=== PATIENT | male | born 1995 | race Caucasian/White ===

== ENCOUNTER 2017-08-09 13:34 | Emergency (ER) | payer OTHER ==
[~2017-08-09] VITALS: Ht 162.6 cm; Wt 77.1 kg
[~2017-08-09 13:34] MED LIST: BENADRYL25 MG PO; KEFLEX500 MG PO; KENALOG60 GM TP; NOHOMEMEDICATIONS; PEPCID40 MG PO; PREDNISONE 20 M20 MG PO
[2017-08-09] MEDS ORDERED: RISPERDAL 1 MG T1 MG PO (13:51)
[2017-08-09] MEDS ORDERED: PROZAC10 M1 PO (13:51)
[2017-08-09] MEDS ORDERED: TRAZODONE 150150 M1 PO (13:52)
[2017-08-09] MEDS ORDERED: IBUPROFEN 600600 M1 PO (14:35)
[2017-08-09] MEDS ORDERED: AMOXICILLIN 50500 M1 PO (14:35)
[2017-08-09 14:46] VITALS: BP 130/83
== END 2017-08-09 14:47 | disposition home or self-care (01) ==
LOC: M.ERS 13:34
DX: K04.7 Periapical abscess without sinus (principal); F17.200 Nicotine dependence, unspecified, uncomplicated; F12.10 Cannabis abuse, uncomplicated; Z90.89 Acquired absence of other organs

== ENCOUNTER 2017-11-22 09:12 | Emergency (ER) | payer OTHER ==
[~2017-11-22] VITALS: Ht 162.6 cm; Wt 81.7 kg
[~2017-11-22 09:12] MED LIST changes: +AMOXICILLIN 50500 M1 PO; +IBUPROFEN 600600 M1 PO; +PROZAC10 M1 PO; +RISPERDAL 1 MG T1 MG PO; +TRAZODONE 150150 M1 PO
[2017-11-22 10:24] VITALS: BP 155/87
== END 2017-11-22 10:25 | disposition home or self-care (01) ==
LOC: M.ERS 09:12
DX: Z71.1 Person with feared health complaint in whom no diagnosis is made (principal)

== ENCOUNTER 2018-02-26 12:24 | Emergency (ER) | payer OTHER ==
[~2018-02-26] VITALS: Ht 160 cm; Wt 68.0 kg
[2018-02-26] MEDS ORDERED: PREDNISONE 10 M10 MG PO (14:05)
[2018-02-26] MEDS ORDERED: VENTOLIN HFA 1818 GM INH (14:05)
[2018-02-26 14:20] VITALS: BP 138/90
== END 2018-02-26 14:20 | disposition home or self-care (01) ==
LOC: M.ERS 12:24
DX: J40 Bronchitis, not specified as acute or chronic (principal); F17.210 Nicotine dependence, cigarettes, uncomplicated

== ENCOUNTER 2018-07-16 07:35 | Emergency (ER) | payer OTHER ==
[~2018-07-16] VITALS: Ht 160 cm; Wt 81.7 kg
[~2018-07-16 07:35] MED LIST changes: +PREDNISONE 10 M10 MG PO; +VENTOLIN HFA 1818 GM INH
[2018-07-16 08:18] LABS: ABSOLUTE BASOPHILS 0.1 thou/uL (0.0-0.2); ABSOLUTE EOSINOPHILS 0.6 thou/uL (0.0-0.7); ABSOLUTE LYMPHOCYTES 2.1 thou/uL (0.8-5.3); ABSOLUTE MONOCYTES 0.8 thou/uL (0.0-1.2); ABSOLUTE NEUTROPHILS 7.4 thou/uL (1.6-8.1); BASOPHILS 1.3 %; EOSINOPHILS 5.3 %; HEMATOCRIT 45.5 % (42.0-52.0); HEMOGLOBIN 15.6 gm/dL (14.0-18.0); LYMPHOCYTES 18.9 %; MCH 30.2 pg (26.0-34.0); MCHC 34.4 g/dL (28.0-37.0); MCV 87.8 fL (80.0-100.0); MONOCYTES 6.9 %; MPV 8.7 fl. (7.2-11.1); NUCLEATED RBCS 0 /100WBC; PLATELET COUNT* 274 thou/uL (150-400); POLYS 67.6 %; RBC 5.18 mil/uL (4.50-6.00); RDW-CV 12.2 % (10.5-14.5)
[2018-07-16 08:32] LABS: ANION GAP 9 mmol/L (7-16); BUN 20 mg/dL (7-18); CALCIUM 8.7 mg/dL (8.5-10.1); CHLORIDE 104 mmol/L (98-107); CO2 26 mmol/L (21-32); GLUCOSE 130 mg/dL (70-99); POTASSIUM 4.4 mmol/L (3.5-5.1); SODIUM 139 mmol/L (136-145); TROPONIN-I LEVEL <0.06 ng/mL (<0.06)
[2018-07-16 08:34] LABS: ALBUMIN 3.8 g/dL (3.4-5.0); ALKALINE PHOSPHATASE 77 U/L (46-116); NT-PRO BRAIN NAT PEPTIDE 18 pg/mL (<300); SGOT 18 U/L (15-37); SGPT 35 U/L (30-65); TOTAL BILIRUBIN 0.1 mg/dL (<0.1-1.0); TOTAL PROTEIN 7.5 g/dL (6.4-8.2)
[2018-07-16 08:42] LABS: PCO2 39.9 mmHg (35.0-45.0); PO2 82.7 mmHg (75.0-100.0); pH 7.346 (7.340-7.450)
[2018-07-16 08:56] LABS: APTT 33.7 Seconds (25.0-31.3); PROTIME 10.2 Seconds (9.20-11.50)
[2018-07-16] MEDS ORDERED: AZITHROMYCIN 2250 MG PO (10:17)
[2018-07-16] MEDS ORDERED: PROAIR HFA8.5 GM INH (10:17)
[2018-07-16] MEDS ORDERED: AEROCHAMBER PL1 EACH INH (10:17)
[2018-07-16] MEDS ORDERED: MEDROLDOSEPACK PO (10:17)
[2018-07-16 11:06] VITALS: BP 134/75
--- NOTE | 2018-07-16 17:39 | EKG ---
[place] [address] ELECTROCARDIOGRAM REPORT Name: XENA ERICKSON [facility] [place] [id number] Admission: 07/16/18 Attend Phys: Discharge: 07/16/18 Date of : [birth year] Report #: [id number] THIS REPORT FOR: //name// [facility] ED Test Date: 2018-07-16 Test Time: 07:39:12 Pat Name: XENA ERICKSON Department: Room: Gender: M Access Representative: UNKNOWN : 1995 Requested By: Raj Cano Order Number: [id number] MD: Man Cardona Measurements Intervals [place] Rate: 116 P: 78 [place]: 170 QRS: 76 QRSD: 78 T: 36 QT: 301 QTc: 419 Interpretive Statements Sinus tachycardia No previous ECG available for comparison Electronically Signed On 07-16-2018 17:39:34 CDT by Man Cardona [email or web address] <ELECTRONICALLY SIGNED> By: Man Cardona MD, [facility] 07/16/18 1739 0739 0739 Man Cardona MD, FACC /EPI
== END 2018-07-16 11:07 | disposition home or self-care (01) ==
LOC: M.ERS 07:35
PROVIDERS: Emergency Medicine
DX: J40 Bronchitis, not specified as acute or chronic (principal); J18.9 Pneumonia, unspecified organism; J98.01 Acute bronchospasm

== ENCOUNTER 2018-12-23 16:23 | Emergency (ER) | payer OTHER ==
[~2018-12-23] VITALS: Ht 162.6 cm; Wt 87.5 kg
[~2018-12-23 16:23] MED LIST changes: +AEROCHAMBER PL1 EACH INH; +AZITHROMYCIN 2250 MG PO; +MEDROLDOSEPACK PO; +PROAIR HFA8.5 GM INH
[2018-12-23] MEDS ORDERED: INVEGA 3 MG3 MG PO (16:45)
[2018-12-23] MEDS ORDERED: DOXYCYCLINE 10100 MG PO (17:11)
[2018-12-23 17:30] LABS: URINE BILIRUBIN NEGATIVE (Negative); URINE BLOOD 2+ (Negative); URINE CLARITY CLEAR; URINE COLOR YELLOW; URINE GLUCOSE-RANDOM NEGATIVE (Negative); URINE KETONES NEGATIVE (Negative); URINE LEUKOCYTES-REFLEX NEGATIVE (Negative); URINE NITRITE-REFLEX NEGATIVE (Negative); URINE PROTEIN 2+ (Negative); URINE SPECIFIC GRAVITY >= 1.030 (1.005-1.030); URINE UROBILINOGEN 0.2 E.U./dl (0.2-1.0)
[2018-12-23 17:46] VITALS: BP 142/89
[2018-12-23 17:48] LABS: BACTERIA-REFLEX >30 Many /HPF (None Seen); CASTS None Seen /LPF (None Seen); CRYSTALS None Seen /LPF (None Seen); SQUAMOUS 0-3 Few /LPF (0-3); URINE RBC 0-2 Rare /HPF (0-2); URINE WBC-REFLEX None Seen /HPF (0-5)
== END 2018-12-23 17:47 | disposition home or self-care (01) ==
LOC: M.ERS 16:23
PROVIDERS: Emergency Medicine Emergency Medical Services
DX: N34.2 Other urethritis (principal); F20.9 Schizophrenia, unspecified; F17.210 Nicotine dependence, cigarettes, uncomplicated

== ENCOUNTER 2019-09-05 16:21 | Emergency (ER) | payer OTHER ==
[~2019-09-05] VITALS: Ht 160 cm; Wt 86.2 kg
[~2019-09-05 16:21] MED LIST changes: +DOXYCYCLINE 10100 MG PO; +INVEGA 3 MG3 MG PO
[2019-09-05] MEDS ORDERED: KEFLEX500 M2 PO (16:39)
[2019-09-05] MEDS ORDERED: DEPAKOTE250 MG PO (16:39)
[2019-09-05 17:10] VITALS: BP 128/61
== END 2019-09-05 17:10 | disposition home or self-care (01) ==
LOC: M.ERS 16:21
DX: S60.521A Blister (nonthermal) of right hand, initial encounter (principal); Z79.899 Other long term (current) drug therapy; X58.XXXA Exposure to other specified factors, initial encounter; Y93.89 Activity, other specified; Y92.89 Other specified places as the place of occurrence of the external cause; Y99.8 Other external cause status

== ENCOUNTER 2020-01-22 20:19 | Emergency (ER) | payer OTHER ==
[~2020-01-22] VITALS: Ht 160 cm; Wt 87.1 kg
[~2020-01-22 20:19] MED LIST changes: +DEPAKOTE250 MG PO; +KEFLEX500 M2 PO
[2020-01-22] MEDS ORDERED: PREDNISONE50 MG PO (22:10)
[2020-01-22] MEDS ORDERED: PROAIR HFA8.5 GM INH ×2 (22:10→22:13)
[2020-01-22 22:18] VITALS: BP 138/80
--- NOTE | 2020-01-23 15:28 | EKG ---
[place] [address] ELECTROCARDIOGRAM REPORT Name: XENA ERICKSON [facility] [id number] Admission: 01/22/20 Attend Phys: Discharge: 01/22/20 Date of : [birth year] Date of Service: 01/22/202024 Report #: [id number] THIS REPORT FOR: //name// [facility] ED Test Date: 2020-01-22 Test Time: 20:25:28 Pat Name: XENA ERICKSON Department: Room: Gender: Barbecue Cook: OR : 1995 Requested By: Kianna Flynn Order Number: [id number] MD: Man Cardona Measurements Intervals [place] Rate: 102 P: 73 [place]: 179 QRS: 70 QRSD: 71 T: 79 QT: 320 QTc: 417 Interpretive Statements Sinus tachycardia Baseline wander in lead(s) II,III,aVF Compared to ECG 07/16/2018 07:39:12 No significant changes Electronically Signed On 01-23-2020 15:27:48 CDT by Man Cardona [email or web address] <ELECTRONICALLY SIGNED> By: Man Cardona MD, [facility] 01/23/20 1527 24 24 Man Cardona MD, [facility] /EPI
== END 2020-01-22 22:20 | disposition home or self-care (01) ==
LOC: M.ERS 20:19
DX: J40 Bronchitis, not specified as acute or chronic (principal); Z20.828 Contact with and (suspected) exposure to other viral communicable diseases; Z79.899 Other long term (current) drug therapy; Z91.013 Allergy to seafood

== ENCOUNTER 2020-03-25 09:09 | Emergency (ER) | payer OTHER ==
[~2020-03-25] VITALS: Ht 160 cm; Wt 87.5 kg
[~2020-03-25 09:09] MED LIST changes: +PREDNISONE50 MG PO
[2020-03-25] MEDS ORDERED: TOPAMAX100 MG PO (09:22)
[2020-03-25] MEDS ORDERED: FISH OIL 1,0001 EAC9 PO (09:22)
[2020-03-25 10:01] VITALS: BP 138/72
== END 2020-03-25 10:02 | disposition home or self-care (01) ==
LOC: M.ERS 09:09
DX: J06.9 Acute upper respiratory infection, unspecified (principal); F20.9 Schizophrenia, unspecified; Z20.828 Contact with and (suspected) exposure to other viral communicable diseases; Z96.22 Myringotomy tube(s) status; Z79.899 Other long term (current) drug therapy; Z91.013 Allergy to seafood